=== PATIENT | male | born 1945 | race Caucasian/White ===

== ENCOUNTER 2019-12-26 18:46 | Emergency (ER) | payer MEDICARE ==
[2019-12-26] MEDS ORDERED: Cyclobenzaprine 10 MG TAB ONE (19:22)
--- NOTE | 2019-12-26 19:34 | RAD ---
EXAM: XR Lumbar Spine 2 Or 3 View DATE: 12/26/2019 7:04 PM INDICATION: Low back pain COMPARISON: None. FINDING: AP and lateral projections of the lumbar spine were provided. There is moderate disc degenerative disease at L5-S1 with mild multilevel disc degenerative disease a t L1-2 through L4-5. Vertebral body heights and spinal alignment appear within normal limits. No acute fracture or subluxation is evident. There are mild vascular calcifications seen involving the v isualized vasculature. Surgical clips overlie the lower anterior midline of the abdomen. IMPRESSION:No acute osseous abnormality. Mild to moderate lumbar spondylosis.
== END 2019-12-26 20:06 | disposition home or self-care (01) ==
LOC: MADERS 18:46
DX: M62.830 Muscle spasm of back (principal); M54.5 Low back pain; I10 Essential (primary) hypertension; F17.220 Nicotine dependence, chewing tobacco, uncomplicated; Z79.899 Other long term (current) drug therapy; Z86.73 Personal history of transient ischemic attack (TIA), and cerebral infarction without residual deficits; W06.XXXA Fall from bed, initial encounter
CPT/HCPCS: 36416; 72100; 96372; J1040